=== PATIENT | female | born 1945 | race Caucasian/White ===

== ENCOUNTER 2021-09-27 08:09 | Day surgery (SDC) | payer MEDICARE ==
[2021-09-27] MEDS ORDERED: XYLOCAINE-MPF 1% 5ML SDV IJ ONE (08:10)
[2021-09-27] MEDS ORDERED: Marcaine Mpf 0.5% Vial 30 Ml IJ ONE (08:10)
[2021-09-27] MEDS ORDERED: Depo-Medrol 40 MG/ML IM ONE (08:10)
--- NOTE | 2021-09-27 10:50 | XRAY ---
Indication: Left shoulder injection. Intraoperative fluoroscopy provided for 18 seconds. 2 digital spot image submitted for interpretation demonstrates needle tip projecting over the left glenohumeral joint superiorly. Small amount of contrast injected for needle tip placement. Correlate with intraoperative findings/report.
--- NOTE | 2021-09-27 11:02 | XRAY ---
18 seconds fluoroscopy time in surgery for intra-articular injection of the left shoulder.
== END 2021-09-27 10:11 | disposition home or self-care (01) ==
LOC: SDC-PAIN 08:09
PROVIDERS: ATTEND Psychiatry & Neurology Pain Medicine
DX: M19.012 Primary osteoarthritis, left shoulder (principal); E11.9 Type 2 diabetes mellitus without complications; Z79.899 Other long term (current) drug therapy
CPT/HCPCS: 20610; 73030; 77002; 82947; J1030; Q9966

== ENCOUNTER 2022-07-11 09:11 | Day surgery (SDC) | payer MEDICARE ==
[2022-07-11] MEDS ORDERED: LIDOCAINE HCL 2% 100 MG/5 ML IJ ONE (09:12)
[2022-07-11] MEDS ORDERED: Depo-Medrol 40 MG/ML IM ONE (09:12)
[2022-07-11] MEDS ORDERED: DIPRIVAN 200 MG/20 ML IV ONE (10:16)
[2022-07-11] MEDS ORDERED: Lactated Ringers 1,000 ML IV ONE (11:55)
--- NOTE | 2022-07-11 18:10 | XRAY ---
Indication: Bilateral L4-S1 RFA. Intraoperative fluoroscopy provided for 11 seconds. Single digital spot image submitted for interpretation demonstrates posterior needle tips projecting over the expected left and right L4-S1 nerve roots. Correlate with intraoperative findings/report.
--- NOTE | 2022-07-11 19:02 | XRAY ---
11 seconds of fluoroscopy was used in surgery for a bilateral L4-S1 RFA.
== END 2022-07-11 10:45 | disposition home or self-care (01) ==
LOC: SDC-PAIN 09:11
PROVIDERS: ATTEND Psychiatry & Neurology Pain Medicine
DX: M47.816 Spondylosis without myelopathy or radiculopathy, lumbar region (principal); E11.9 Type 2 diabetes mellitus without complications; Z79.899 Other long term (current) drug therapy
CPT/HCPCS: 64493; 64494; 72020; 77002; 82947; J1030; J2704

== ENCOUNTER 2022-08-15 09:00 | Day surgery (SDC) | payer MEDICARE ==
[2022-08-15] MEDS ORDERED: BUPIVACAINE 0.5% VIAL IJ ONE (09:01)
[2022-08-15] MEDS ORDERED: DIPRIVAN 200 MG/20 ML IV ONE (10:29)
[2022-08-15] MEDS ORDERED: Lactated Ringers 1,000 ML IV ONE (14:28)
--- NOTE | 2022-08-15 19:06 | XRAY ---
Indication: Bilateral L4-S1 MBB. Intraoperative fluoroscopy provided for 14 seconds. Single digital spot image submitted for interpretation demonstrates posterior needle tips projecting over the expected left and right L4-S1 nerve roots. Correlate with intraoperative findings/report.
--- NOTE | 2022-08-15 19:25 | XRAY ---
14 seconds of fluoroscopy was used in surgery for a bilateral L4-S1 MBB.
== END 2022-08-15 11:00 | disposition home or self-care (01) ==
LOC: SDC-PAIN 09:00
PROVIDERS: ATTEND Psychiatry & Neurology Pain Medicine
DX: M47.816 Spondylosis without myelopathy or radiculopathy, lumbar region (principal); E11.9 Type 2 diabetes mellitus without complications; Z79.899 Other long term (current) drug therapy
CPT/HCPCS: 64494; 64495; 72020; 77002; 82947; J2704

== ENCOUNTER 2022-09-12 09:21 | Day surgery (SDC) | payer MEDICARE ==
[2022-09-12] MEDS ORDERED: LIDOCAINE HCL 1% 50 MG/5 ML VL PF IJ ONE (09:22)
[2022-09-12] MEDS ORDERED: Depo-Medrol 40 MG/ML IM ONE (09:22)
[2022-09-12] MEDS ORDERED: BUPIVACAINE 0.5% VIAL IJ ONE (09:22)
[2022-09-12] MEDS ORDERED: DIPRIVAN 200 MG/20 ML IV ONE (11:11)
--- NOTE | 2022-09-12 11:50 | XRAY ---
Indication: Right L4-S1 RFA. Intraoperative fluoroscopy provided for 19 seconds. 4 digital spot image submitted for interpretation demonstrates posterior needle tips project over the expected right L4-S1 nerve roots. Correlate with intraoperative findings/report.
[2022-09-12] MEDS ORDERED: Lactated Ringers 1,000 ML IV ONE (11:53)
--- NOTE | 2022-09-12 13:02 | XRAY ---
19 seconds of fluoroscopy was used in surgery for a right L4-S1 RFA.
== END 2022-09-12 11:43 | disposition home or self-care (01) ==
LOC: SDC-PAIN 09:21
PROVIDERS: ATTEND Psychiatry & Neurology Pain Medicine
DX: M47.816 Spondylosis without myelopathy or radiculopathy, lumbar region (principal); E11.9 Type 2 diabetes mellitus without complications; Z79.899 Other long term (current) drug therapy
CPT/HCPCS: 64635; 64636; 72100; 77002; 82947; J1030; J2001; J2704

== ENCOUNTER 2022-09-19 09:43 | Day surgery (SDC) | payer MEDICARE ==
[2022-09-19] MEDS ORDERED: LIDOCAINE HCL 1% 50 MG/5 ML VL PF IJ ONE (09:44)
[2022-09-19] MEDS ORDERED: BUPIVACAINE 0.5% VIAL IJ ONE (09:44)
[2022-09-19] MEDS ORDERED: Depo-Medrol 40 MG/ML IM ONE (09:44)
[2022-09-19] MEDS ORDERED: DIPRIVAN 200 MG/20 ML IV ONE (11:06)
[2022-09-19] MEDS ORDERED: Lactated Ringers 1,000 ML IV ONE (13:10)
--- NOTE | 2022-09-19 18:35 | XRAY ---
Indication: Left L4-S1 RFA. Intraoperative fluoroscopy provided for 24 seconds. 4 digital spot image submitted for interpretation demonstrates posterior needle tips projecting over the expected left L4-S1 nerve roots. Correlate with intraoperative findings/report.
--- NOTE | 2022-09-19 18:56 | XRAY ---
24 seconds of fluoroscopy was used in surgery for a left L4-S1 RFA.
== END 2022-09-19 11:40 | disposition home or self-care (01) ==
LOC: SDC-PAIN 09:43
PROVIDERS: ATTEND Psychiatry & Neurology Pain Medicine
DX: M47.816 Spondylosis without myelopathy or radiculopathy, lumbar region (principal); E11.9 Type 2 diabetes mellitus without complications; Z79.899 Other long term (current) drug therapy
CPT/HCPCS: 64635; 64636; 72100; 77002; 82947; 99100; J1030; J2001; J2704